=== PATIENT | female | born 1955 | race Caucasian/White ===

== ENCOUNTER 2016-11-04 10:29 | Emergency (ER) | payer BC ==
[~2016-11-04] VITALS: Ht 154.9 cm; Wt 43.9 kg
[~2016-11-04 10:29] MED LIST: CYCL-375 PO; IBUP200C62 PO
[2016-11-04 10:30] VITALS: Ht 154.9 cm; Wt 43.9 kg
--- OUTSIDE RECORDS SUMMARY | 2016-11-04 10:33 | XMS REPORT | Referral Summary ---
Author Author [facility], [facility] Organization [facility] Address Unknown Phone Unavailable Care Team Providers Care Nozzle Tender Name Role Phone Jenn Paige Primary Care Physician [phone] Encounter Date(s): 07/28/16 - 07/28/16 [facility], [address] [place] [id number] Discharge Diagnosis: Left shoulder pain Discharge Diagnosis: Breast cancer Discharge Disposition: 01-Home or Self Care Attending Physician: Kd Paige MD Admitting Physician: Kd Paige MD Vital Signs Most recent to 1 oldest [Reference Range]: Blood Pressure 114/68 mmHg [90-140/60-90 mmHg] (07/28/16 2:59 PM) Problem List Condition Effective Dates Status Health Status Informant Allergic rhinitis Active due to allergen(Confirmed) Breast 2001 Active cancer(Confirmed) Allergies, Adverse Reactions, Alerts Substance Reaction Severity Status sulfanilamide topical Active Medications cyclobenzaprine 10 mg oral tablet 10 mg 1 tabs, Oral, TID, as needed for spasm, # 60 tabs, 1 Refill(s), Pharmacy: [facility], 1 tabs Oral TID,PRN:as needed for spasm Start Date: 04/26/16 Status: Ordered ibuprofen 200 mg oral tablet 1 tabs, Oral, Daily, as needed for pain, 0 Refill(s) Start Date: 02/11/14 Status: Ordered magnesium oxide Oral, Daily, 0 Refill(s) Start Date: 07/28/16 Status: Ordered multivitamin Daily, 0 Refill(s) Start Date: 04/26/16 Status: Ordered Skelaxin 800 mg oral tablet 800 mg 1 tabs, Oral, TID, X 21 days, # 63 tabs, 1 Refill(s), Pharmacy: [facility], 1 tabs Oral TID,x21 days Start Date: 07/28/16 Stop Date: 09/08/16 Status: Ordered Results No data available for this section Immunizations No data available for this section Procedures Procedure Date Related Diagnosis Body Site Colonoscopic polypectomy1 06/03/14 Breast lumpectomy2 2000 Repair of inguinal hernia 1966 Rotator cuff repair3 Tubal ligation 1Single adenomatous polyp, father positive colon cancer, repeat in 5 years 2Left breast, followed by radiation 3Right, arthroscopically Social History Social History Type Response Smoking Status Current every day smoker; Type: Cigarettes; Tobacco use per day: 1 Pack Assessment and Plan Extracted from: Title: Ambulatory Patient Education Author: Kd Paige MD Date: 07/28 Family Medicine Joint Pain Joint pain, which is also called arthralgia, can be caused by many things. Joint pain often goes away when you follow your health care provider's instructions for relieving pain at home. However, joint pain can also be caused by conditions that require further treatment. Common causes of joint pain include: Bruising in the area of the joint. Overuse of the joint. Wear and tear on the joints that occur with aging (osteoarthritis). Various other forms of arthritis. A buildup of a crystal form of uric acid in the joint (gout). Infections of the joint (septic arthritis) or of the bone (osteomyelitis) . Your health care provider may recommend medicine to help with the pain. If your joint pain continues, additional tests may be needed to diagnose your condition. HOME CARE INSTRUCTIONS Watch your condition for any changes. Follow these instructions as directed to lessen the pain that you are feeling. Take medicines only as directed by your health care provider. Rest the affected area for as long as your health care provider says that you should. If directed to do so, raise the painful joint above the level of your heart while you are sitting or lying down. Do not do things that cause or worsen pain. If directed, apply ice to the painful area: Put ice in a plastic bag. Place a towel between your skin and the bag. Leave the ice on for 20 minutes, 23 times per day. Wear an elastic bandage, splint, or sling as directed by your health care provider. Loosen the elastic bandage or splint if your fingers or toes become numb and tingle, or if they turn cold and blue. Begin exercising or stretching the affected area as directed by your health care provider. Ask your health care provider what types of exercise are safe for you. Keep all follow-up visits as directed by your health care provider. This is important. SEEK MEDICAL CARE IF: Your pain increases, and medicine does not help. Your joint pain does not improve within 3 days. You have increased bruising or swelling. You have a fever. You lose 10 lb (4.5 kg) or more without trying. SEEK IMMEDIATE MEDICAL CARE IF: You are not able to move the joint. Your fingers or toes become numb or they turn cold and blue. This information is not intended to replace advice given to you by your health care provider. Make sure you discuss any questions you have with your health care provider. Document Released: 07/11/2006 Document Revised: 08/01/2015 Document Reviewed: [employer] Interactive Patient Education 2016 [employer] Procedures Heat Therapy Heat therapy can help ease sore, stiff, injured, and tight muscles and joints. Heat relaxes your muscles, which may help ease your pain. Heat therapy should only be used on old, pre-existing, or long-lasting (chronic) injuries. Do not use heat therapy unless told by your doctor. HOW TO USE HEAT THERAPY There are several different kinds of heat therapy, including: Moist heat pack. Warm water bath. Hot water bottle. Electric heating pad. Heated gel pack. Heated wrap. Electric heating pad. GENERAL HEAT THERAPY RECOMMENDATIONS Do not sleep while using heat therapy. Only use heat therapy while you are awake. Your skin may turn pink while using heat therapy. Do not use heat therapy if your skin turns red. Do not use heat therapy if you have new pain. High heat or long exposure to heat can cause vela. Be careful when using heat therapy to avoid burning your skin. Do not use heat therapy on areas of your skin that are already irritated , such as with a rash or sunburn. GET HELP IF: You have blisters, redness, swelling (puffiness), or numbness. You have new pain. Your pain is worse. MAKE SURE YOU: Understand these instructions. Will watch your condition. Will get help right away if you are not doing well or get worse. This information is not intended to replace advice given to you by your health care provider. Make sure you discuss any questions you have with your health care provider. Document Released: 10/02/2012 Document Revised: 08/01/2015 Document Reviewed: [employer] Interactive Patient Education 2016 [employer] No follow up information was provided. Extracted from: Title: Office Visit Note Author: Kd Paige MD Date: 07/28/16 Assessment/Plan 1.Breast cancer Stable. Ordered: Office Visit Level 3 Est 74794 2.Left shoulder pain Will try her on Skelaxin since it doesn't make one sleepy. She will take it tid. Continue with the Advil 600mg tid. If not improving will get a consult from Dr. Banuelos. Ordered: Office Visit Level 3 Est 98153
--- OUTSIDE RECORDS SUMMARY | 2016-11-04 10:33 | XMS REPORT | Referral Summary ---
Author Author [facility], [facility] Organization [facility] Address Unknown Phone Unavailable Care Team Providers Care Manager Property Name Role Phone Jenn Paige Primary Care Physician [phone] Encounter VC Date(s): 04/26/16 - 04/26/16 [facility], [address] [place] [address] Discharge Disposition: 01-Home or Self Care Attending Physician: Kd Paige MD Admitting Physician: Kd Paige MD Vital Signs Most recent to 1 oldest [Reference Range]: Blood Pressure 106/64 mmHg [90-140/60-90 mmHg] (04/26/16 3:52 PM) Problem List Condition Effective Dates Status Health Status Informant Allergic rhinitis Active due to allergen(Confirmed) Breast 2001 Active cancer(Confirmed) Allergies, Adverse Reactions, Alerts Substance Reaction Severity Status sulfanilamide topical Active Medications cyclobenzaprine 10 mg oral tablet 10 mg 1 tabs, Oral, TID, as needed for spasm, # 60 tabs, 1 Refill(s), Pharmacy: [facility], 1 tabs Oral TID,PRN:as needed for spasm Start Date: 04/26/16 Status: Ordered ibuprofen 200 mg oral tablet 1 tabs, Oral, Daily, as needed for pain, 0 Refill(s) Start Date: 02/11/14 Status: Ordered melatonin 3 mg oral tablet 3 mg 1 tabs, Oral, Bedtime (once a day), as needed for insomnia, # 60 tabs, 0 Refill(s) Start Date: 04/26/16 Status: Ordered Mobic 7.5 mg oral tablet 7.5 mg 1 tabs, Oral, BID, # 60 tabs, 2 Refill(s), Pharmacy: [facility], 1 tabs Oral BID Start Date: 04/26/16 Status: Ordered multivitamin Daily, 0 Refill(s) Start Date: 04/26/16 Status: Ordered Results No data available for [...] Patient Education Author: Kd Paige MD Date: 04/26/16 Cardiovascular Chest Wall Pain Chest wall pain is pain in or around the bones and muscles of your chest. It may take up to 6 weeks to get better. It may take longer if you must stay physically active in your work and activities. CAUSES Chest wall pain may happen on its own. However, it may be caused by: A viral illness like the flu. Injury. Coughing. Exercise. Arthritis. Fibromyalgia. Shingles. HOME CARE INSTRUCTIONS Avoid overtiring physical activity. Try not to strain or perform activities that cause pain. This includes any activities using your chest or your abdominal and side muscles, especially if heavy weights are used. Put ice on the sore area. Put ice in a plastic bag. Place a towel between your skin and the bag. Leave the ice on for 15-20 minutes per hour while awake for the first 2 days. Only take [id number] or prescription medicines for pain, discomfort , or fever as directed by your caregiver. SEEK IMMEDIATE MEDICAL CARE IF: Your pain increases, or you are very uncomfortable. You have a fever. Your chest pain becomes worse. You have new, unexplained symptoms. You have nausea or vomiting. You feel sweaty or lightheaded. You have a cough with phlegm (sputum), or you cough up blood. MAKE SURE YOU: Understand these instructions. Will watch your condition. Will get help right away if you are not doing well or get worse. This information is not intended to replace advice given to you by your health care provider. Make sure you discuss any questions you have with your health care provider. Document Released: 07/11/2006 Document Revised: 10/02/2012 Document Reviewed: ExitCare Patient Information 2016 [employer]. No follow up information was provided. Extracted from: Title: Office Visit Note Author: Kd Paige MD Date: 04/26/16 Assessment/Plan Chest wall pain Costochondritis Rx for Mobic. Ordered: Office Visit Level 3 Est 57966 XR Chest 2 Views
--- OUTSIDE RECORDS SUMMARY | 2016-11-04 10:33 | XMS REPORT | Referral Summary ---
Author Author [facility], [facility] Organization [facility] Address Unknown Phone Unavailable Care Team Providers Care Chairman And Ceo Name Role Phone Jenn Paige Primary Care Physician [phone] Encounter VC Date(s): 04/14/15 - 04/14/15 [facility], [address] [place] [address] Discharge Disposition: 01-Home or Self Care Attending Physician: Kd Paige MD Admitting Physician: Kd Paige MD Vital Signs Most recent to 1 oldest [Reference Range]: Blood Pressure 122/70 mmHg [90-140/60-90 mmHg] (04/14/15 3:58 PM) Problem List Condition Effective Dates Status Health Status Informant Allergic rhinitis Active due to allergen(Confirmed) Breast 2000 Active cancer(Confirmed) Allergies, Adverse Reactions, Alerts Substance Reaction Severity Status sulfanilamide topical Active Medications cyclobenzaprine 10 mg oral tablet 10 mg 1 tabs, Oral, TID, as needed for spasm, # 60 tabs, 1 Refill(s), Pharmacy: [facility], 1 tabs Oral TID,PRN:as needed for spasm Start Date: 04/14/15 Status: Ordered ibuprofen 200 mg oral tablet 1 tabs, Oral, Daily, as needed for pain, 0 Refill(s) Start Date: 02/11/14 Status: Ordered Results No data available for [...] Smoking Status Current every day smoker; Type: Cigarettes Assessment and Plan Extracted from: Title: Ambulatory Patient Education Author: Kd Paige MD Date: Allergy Allergic Rhinitis Allergic rhinitis is when the mucous membranes in the nose respond to allergens. Allergens are particles in the air that cause your body to have an allergic reaction. This causes you to release allergic antibodies. Through a chain of events, these eventually cause you to release histamine into the blood stream. Although meant to protect the body, it is this release of histamine that causes your discomfort, such as frequent sneezing, congestion, and an itchy , runny nose. CAUSES Seasonal allergic rhinitis (hay fever) is caused by pollen allergens that may come from grasses, trees, and weeds. Year-round allergic rhinitis (perennial allergic rhinitis) is caused by allergens such as house dust mites, pet dander, and mold spores. SYMPTOMS Nasal stuffiness (congestion). Itchy, runny nose with sneezing and tearing of the eyes. DIAGNOSIS Your health care provider can help you determine the allergen or allergens that trigger your symptoms. If you and your health care provider are unable to determine the allergen, skin or blood testing may be used. TREATMENT Allergic rhinitis does not have a cure, but it can be controlled by: Medicines and allergy shots (immunotherapy). Avoiding the allergen. Hay fever may often be treated with antihistamines in pill or nasal spray forms. Antihistamines block the effects of histamine. There are over-the- counter medicines that may help with nasal congestion and swelling around the eyes. Check with your health care provider before taking or giving this medicine. If avoiding the allergen or the medicine prescribed do not work, there are many new medicines your health care provider can prescribe. Stronger medicine may be used if initial measures are ineffective. Desensitizing injections can be used if medicine and avoidance does not work. Desensitization is when a patient is given ongoing shots until the body becomes less sensitive to the allergen. Make sure you follow up with your health care provider if problems continue. HOME CARE INSTRUCTIONS It is not possible to completely avoid allergens, but you can reduce your symptoms by taking steps to limit your exposure to them. It helps to know exactly what you are allergic to so that you can avoid your specific triggers. SEEK MEDICAL CARE IF: You have a fever. You develop a cough that does not stop easily (persistent). You have shortness of breath. You start wheezing. Symptoms interfere with normal daily activities. Document Released: 04/05/2002 Document Revised: 07/16/2014 Document Reviewed: ExitCare Patient Information 2015 [employer]. This information is not intended to replace advice given to you by your health care provider. Make sure you discuss any questions you have with your health care provider. Family Medicine Hearing Loss A hearing loss is sometimes called deafness. Hearing loss may be partial or total. CAUSES Hearing loss may be caused by: Wax in the ear canal. Infection of the ear canal. Infection of the middle ear. Trauma to the ear or surrounding area. Fluid in the middle ear. A hole in the eardrum (perforated eardrum). Exposure to loud sounds or music. Problems with the hearing nerve. Certain medications. Hearing loss without wax, infection, or a history of injury may mean that the nerve is involved. Hearing loss with severe dizziness, nausea and vomiting or ringing in the ear may suggest a hearing nerve irritation or problems in the middle or inner ear. If hearing loss is untreated, there is a greater likelihood for residual or permanent hearing loss. DIAGNOSIS A hearing test (audiometry) assesses hearing loss. The audiometry test needs to be performed by a museum specialist (mobile battery technician). TREATMENT Treatment for recent onset of hearing loss may include: Ear wax removal. Medications that kill germs (antibiotics). Cortisone medications. Prompt follow up with the appropriate specialist. Return of hearing depends on the cause of your hearing loss, so proper medical follow-up is important. Some hearing loss may not be reversible, and a caregiver should discuss care and treatment options with you. SEEK MEDICAL CARE IF: You have a severe headache, dizziness, or changes in vision. You have new or increased weakness. You develop repeated vomiting or other serious medical problems. You have a fever. Document Released: 07/11/2006 Document Revised: 10/02/2012 Document Reviewed: ExitCare Patient Information 2015 [employer]. This information is not intended to replace advice given to you by your health care provider. Make sure you discuss any questions you have with your health care provider. No follow up information was provided. Extracted from: Title: Office Visit Note Author: Kd Paige MD Date: 04/14/15 Assessment/Plan Allergic rhinitis due to allergen Will try patient on Nasacort 2puffs to each nostril at bedtime. Ordered: Office Visit Level 3 Est 03049 Hearing loss Ordered: Office Visit Level 3 Est 13383 Orders: cyclobenzaprine, 10 mg 1 tabs, Oral, TID, as needed for spasm, # 60 tabs, 1 Refill(s), Pharmacy: [facility], 1 tabs Oral TID,PRN:as needed for spasm
--- OUTSIDE RECORDS SUMMARY | 2016-11-04 10:33 | XMS REPORT | Referral Summary ---
Author Author [facility], [facility] Organization [facility] Address Unknown Phone Unavailable Care Team Providers Care String Cutter Name Role Phone Jenn Paige Primary Care Physician [phone] Encounter Date(s): 06/28/16 - 06/28/16 [facility] [address] [place] [id number] Discharge Diagnosis: Left shoulder pain Discharge Disposition: 01-Home or Self Care Attending Physician: Katarzyna Law PA-C Admitting Physician: Katarzyna Law PA-C Vital Signs Most recent to 1 oldest [Reference Range]: Peripheral Pulse 68 bpm Rate [60-100 bpm] (06/28/16 3:58 PM) Respiratory Rate 16 br/min [14-20 br/min] (06/28/16 3:58 PM) Blood Pressure 118/72 mmHg [90-140/60-90 mmHg] (06/28/16 3:58 PM) Problem List Condition Effective Dates Status Health Status Informant Allergic rhinitis Active due to allergen(Confirmed) Breast 2001 Active cancer(Confirmed) Allergies, Adverse Reactions, Alerts Substance Reaction Severity Status sulfanilamide topical Active Medications cyclobenzaprine 10 mg oral tablet 10 mg 1 tabs, Oral, TID, as needed for spasm, # 60 tabs, 1 Refill(s), [facility]acy: [facility], 1 tabs Oral TID,PRN:as needed for spasm [...] # 60 tabs, 2 Refill(s), Pharmacy: [facility], 1 tabs Oral BID Start Date: 04/26/16 Status: Ordered multivitamin Daily, 0 Refill(s) Start Date: 04/26/16 Status: Ordered Physical Therapy Physical Therapy, See Instructions, Evaluate and Treat for L shoulder pain ( M25.512) Please fax notes to [phone], # 1 Each, 0 Refill(s) Start Date: 06/28/16 Status: Ordered Results No data available for this section Immunizations No data available for this section Procedures Procedure Date Related Diagnosis Body Site Colonoscopic polypectomy1 06/03/14 Breast lumpectomy2 2000 Repair of inguinal hernia 1965 Rotator cuff repair3 Tubal ligation 1Single adenomatous polyp, father positive colon cancer, repeat in 5 years 2Left breast, followed by radiation 3Right, arthroscopically Social History Social History Type Response Smoking Status Current every day smoker; Type: Cigarettes; Tobacco use per day: 1 Pack Assessment and Plan Extracted from: Title: Office Visit Note- L Author: Katarzyna Law PA-C Date: shoulder pain Assessment/Plan Left shoulder pain Would like to get a dedicated shoulder x-ray today. May continue with Ibuprofen for pain relief. Also can tryice/heat to the shoulder. I think she may have a rotator cuff strain/partial tear, and would benefit also from PT. She was given a script today, and would like to do PT in [place]. If PT is not helping with ROM or with pain, then may get an MRI. Pt is agreeable with plan. Ordered: Misc Medication, Physical Therapy, See Instructions, Evaluate and Treat for L shoulder pain (M25.512) Please fax notes to [phone], # 1 Each, 0 Refill(s) Office Visit Level 3 Est 79927 XR Shoulder Complete Left
--- OUTSIDE RECORDS SUMMARY | 2016-11-04 10:33 | XMS REPORT | Continuity of Care Document ---
Author Author [facility] Organization [facility] Address Unknown Phone Unavailable Support Name Relationship Address Phone YAHAIRA MANTILLA FACS, MD Caregiver [address] [place] [place] [address] [place] [address] [phone] ELISABET RICHARDSON MD Caregiver [address] [place] [place] [address] [place] [address] [phone] JJ CAMARENA Next Of Kin [address] [place] [address] Insurance Providers Payer Name Policy Number Subscriber Name Relationship [facility] [id number] Alka Camarena 16 Self Advance Directives Directive Response Recorded Date/Time Ordered Resuscitation Status Full Code 05/31/14 4:59pm Problems No known problems or medical conditions. Medications Medication Dose Route Sig Days/Qty Instructions Order Date Discontinued Date Status Cyclobenzaprine HCl 1 Tab PO THREE TIMES A DAY 05/31/14 Active Ibuprofen 1 Cap PO Q4H PRN 05/31/14 Active Social History Social History Problem Response Recorded Date/Time Smoking Status Current every day smoker 06/03/2014 10:45am Hx Alcohol Use No 06/03/2014 10:45am Has the pt used tobacco in the last 12 months Yes 06/03/2014 10:45am Hospital Discharge Instructions No hospital discharge instructions. Plan of Care No plan of care. Functional Status No functional status results. Allergies, Adverse Reactions, Alerts Allergen Type Severity Reaction Status Last Updated Sulfa (Sulfonamide Antibiotics) Allergy Unknown Active 05/31/14 Immunizations Name Given Type Hx Influenza Vaccination Yes Historical Hx Pneumococcal Vaccination No Historical Hx Influenza Vaccination Yes Historical Vital Signs Acute Vital Signs Vital Response Date/Time Temperature (Fahrenheit) 98.0 deg F (96.8 - 99.1) Temperature (Calculated Celsius) 36.56603 degrees C (36.0 - 37.3) Temperature Source Temporal Pulse Rate (adult) 76 bpm (60 - 100) Respiratory Rate 16 breaths/min (10 - 20) O2 Sat by Pulse Oximetry 98 % (90 - 100) Oxygen Delivery Method Room Air Blood Pressure 111/67 mm Hg Blood Pressure Source Automatic Cuff Height 5 ft 1 in Weight 96 lb Body Mass Index 18.0 kg/m^2 Results No known relevant diagnostic tests, laboratory data and/or discharge summary. Procedures Procedure Status Date Provider(s) Colonoscopy with polypectomy and biopsy completed 06/03/14 YAHAIRA MANTILLA MD, FACS, CWS
--- NOTE | 2016-11-04 10:40 | NUR ---
IVL IV LOCK STARTED ON FIRST ATTEMPT AND BLOOD DRAWN FOR LAB.
--- OUTSIDE RECORDS SUMMARY | 2016-11-04 10:48 | XMS REPORT | Continuity of Care Document ---
Author Author [facility] Organization [facility] Address Unknown Phone Unavailable Support Name Relationship Address Phone YAHAIRA MANTILLA FACS, MD Caregiver [address] [place] [address] [place] [address] [phone] ELISABET RICHARDSON MD Caregiver [address] [place] [address] [place] [address] [phone] JJ CAMARENA Next Of Kin [address] [place] [address] Insurance Providers Payer Name Policy Number Subscriber Name Relationship [facility] [id number] Alka Camarena 16 Self Advance Directives Directive [...] F (96.8 - 99.1) Temperature (Calculated Celsius) 36.33533 degrees C (36.0 - 37.3) Temperature Source [...]
[2016-11-04 10:50] LABS: BASOPHILS % (AUTO) 0.3 % (0-2); EOSINOPHILS # (AUTO) 0.2 T/MM3 (0-0.5); EOSINOPHILS % (AUTO) 1.8 % (0-4); HCT - HEMATOCRIT 40.5 % (36-46); HGB - HEMOGLOBIN 13.8 GM/DL (12-16); IMMATURE GRANULOCYTE # (AUTO) 0.02 T/MM3 (0.00-0.03); IMMATURE GRANULOCYTE % (AUTO) 0.2 % (0.0-0.5); LYMPHOCYTES # (AUTO) 3.7 T/MM3 (1-4.8); LYMPHOCYTES % (AUTO) 29.3 % (23-45); MEAN CORPUSCULAR HGB 32.5 UUG (26-34); MEAN CORPUSCULAR HGB CONC(MCHC 34.1 GM/DL (31-37); MEAN CORPUSCULAR VOLUME 95.3 UM3 (80-100); MEAN PLATELET VOLUME 8.9 UM3 (9.4-12.4); MONOCYTES # (AUTO) 0.7 T/MM3 (0-0.8); MONOCYTES % (AUTO) 5.5 % (0-9.0); NEUTROPHILS #(AUTO)-ABSOLUTE 7.9 T/MM3 (1.8-7.7); NEUTROPHILS % (AUTO) 62.9 % (33-66); RED BLOOD COUNT 4.25 M/MM3 (4.00-5.20); WBC - WHITE BLOOD COUNT 12.5 T/MM3 (4.5-11.0)
[2016-11-04] MEDS ORDERED: SIMPLY SLEEP PO (10:58)
[2016-11-04] MEDS ORDERED: MAGN400C PO (10:58)
[2016-11-04 11:00] LABS: ALBUMIN 4.3 G/DL (3.5-5.0); ALBUMIN/GLOBULIN RATIO 1.4 RATIO (1.1-2.2); ALKALINE PHOSPHATASE 83 U/L (38-126); ALT (SGPT) 29 U/L (9-52); ANION GAP 15 MEQ/L (5-15); AST (SGOT) 20 U/L (14-36); BUN/CREATININE RATIO 22 RATIO (6-26); CALCIUM 9.7 MG/DL (8.4-10.2); CHLORIDE 105 MEQ/L (98-107); CO2 - CARBON DIOXIDE 20 MEQ/L (22-30); CREATININE 0.6 MG/DL (0.7-1.2); GLOMERULAR FILTRATION RATE 101; GLUCOSE 148 MG/DL (65-110); POTASSIUM 4.4 MEQ/L (3.6-5); SODIUM 140 MEQ/L (134-144); TOTAL PROTEIN 7.4 G/DL (6.3-8.2)
--- NOTE | 2016-11-04 11:00 | NUR ---
STATUS PT. CONTINUES TO DENY CHEST PAIN. MONITOR NSR AND NO NEEDS AT THIS TIME.
--- NOTE | 2016-11-04 11:12 | DI ---
Indication: ITS.REASON: Chest pain starting last night with shortness of breath PROCEDURE: CHEST 1 VIEW: Encounter: Initial Comparison: None FINDINGS: The lungs are clear. There is no abnormal airspace opacity, pleural effusion or pneumothorax identified. Bilateral nipple shadows noted incidentally. The heart size, pulmonary vasculature and mediastinum are within normal limits. No significant skeletal abnormality is seen. IMPRESSION: No acute cardiopulmonary abnormality. .
--- NOTE | 2016-11-04 12:02 | ERPDOC ---
Departure Disposition Decision Date: Nov 04, 2016 Disposition Decision Time: 12:01 Disposition: 01 DISCHARGED HOME, SELF-CARE Impression Impression Impression: Primary Impression: Atypical chest pain Severity: Mild Condition: Improved Seen By: Physician only Referrals: ELISABET RICHARDSON MD (Family) FELIPA NAGEL MD 2 Days Patient Instructions: Noncardiac Chest Pain (ED) Problems/Meds/Labs Reviewed?: Yes Medications reviewed and manag: Yes Follow up care ordered?: Yes Mental Status: Alert, Oriented HPI - General Medical General Chief Complaint: Chest Pain Stated Complaint: CP Time Seen by Provider: 10:38 Source: patient Exam Limitations: no limitations HPI - General Medical Initial Comments 61-year-old female presents to the emergency department with a chief complaint of chest discomfort. Pain was located midsternally. Pain was brief lasting less than 5 minutes. Pain was dull. Patient notes that she had multiple episodes of belching with the discomfort. Patient has no history of coronary artery disease. Pain was over 12 hours ago when present last. She has been a symptomatic for the past 12 hours. She notes that she felt much better after belching. She denies any other complaints or associated symptoms. She was at home laying down to sleep when the symptoms occurred. No familial or personal history of coronary artery disease. Occurred At: home Onset: other (Resolved. ) Allergies: Coded Allergies: Sulfa (Sulfonamide Antibiotics) (Unverified Allergy, Unknown, 05/31/14) Past History Past Medical History Metabolic: cancer Surgical History Denies Surgeries Family History Family History: Negative Vaccines Hx Influenza Vaccination: Yes Hx Pneumococcal Vaccination: No Social History Smoking Status: Current every day smoker Substance Use Type: does not use Alcohol Intake: none Review of Systems Constitutional Constitutional: DENIES: chills, fever Eyes General: DENIES: erythema, exudate Lids/Accessories: DENIES: erythema, swelling Vision: DENIES: acuity, blurring ENMT Ears: DENIES: drainage, erythema Hearing: DENIES: hearing loss Balance: DENIES: ataxia, falling to one side Sinuses: DENIES: congestion, pain Nose: DENIES: nosebleeds, pain Mouth/Throat: DENIES: painful swallowing, sore throat Teeth: DENIES: pain Jaw: DENIES: pain Cardiovascular Cardiac: chest pain (resolved), DENIES: dyspnea on exertion Rhythm/Rate: DENIES: irregular beat, palpitations Vascular: DENIES: pedal edema, unilateral swelling Pulmonary Respiratory: DENIES: cough, dyspnea, pleuritic chest pain, sputum GI Upper Abdomen: DENIES: nausea, pain, vomiting Lower Abdomen: DENIES: diarrhea, pain General: DENIES: dysuria, frequency Musculoskeletal General: DENIES: joint pain, tenderness Integumentary Skin: DENIES: itching, rash Neurological General: DENIES: headache, numbness, weakness Psychiatric Psychiatric: DENIES: emotional instability, suicidal ideation/attempt Endocrine Endocrine: DENIES: polydipsia, polyphagia Hematologic/Lymphatic Hematologic/Lymphatic: DENIES: frequent nosebleeds, lymphadenopathy Allergic/Immunological Allergic/Immunoligical: DENIES: allergic reactions, hives Physical Exam General General Nourishment: well nourished, well developed, appears stated age, no acute distress, adult General Body Habitus: well groomed Vitals and Pain First Documented Vital Signs Date Time Temp Pulse Resp B/P Pulse Ox O2 Delivery O2 Flow Rate FiO2 11/04/16 10:30 98.2 71 20 154/75 99 Room Air Weight: Kilograms: 43.900 Height (feet): 5 Height (inches): 1.00 Triage Pain Scale: RN VS reviewed by Provider: Yes Normal Exams: Head: Normocephalic w/o trauma Eyes: Pupils are PERRLA w/ EOMI, No scleral icterus, irritation, or foreign bodies noted ENMT: No facial trauma, nasal exudates, pharyngeal erythema, or exudates are noted Dental: No fractured, loose, or missing teeth noted Neck: Full range of motion, without adenopathy, JVD, bruits or thyromegaly Chest/Resp: Clear all leonard, with good airflow, and symmetry bilaterally CV: Regular rate and rhythm, without murmur or gallop, Pulses 2+ all extremities, capillary refill, <2 seconds all ext., no pedal edema noted Abdomen: Bowel sounds positive, soft, non-tender, non-distended, no hepatosplenomegaly, masses or bruits noted Lymphatic: No lymphadenopathy, or lymphedema noted Musculoskeletal: No tenderness, or deformity noted, good range of motion, all extremities Integumentary: No rashes, hives, or bruising noted, hair and nails, without abnormality Neurologic: Patient is alert, and oriented, cranial nerves, motor/sensory/ cerebellar, exams w/o gross deficits, to observation Psychiatric: Patient exhibits, appropriate attention, emotion and affect Differential Diagnoses Considering: Acute LA, Medication Effect, Metabolic, Other (GERD) Progress Results/Orders Orders Procedure Category Date Status Time Cbc W/Auto LAB 11/04/16 Complete Diff-Reflex Manual Cmp - Comprehensive LAB 11/04/16 Complete Metabolic Troponin I W LAB 11/04/16 Complete Hemolysis Index Chest 1 View RAD 11/04/16 Resulted 10:41 EKG EKG 11/04/16 Taken D-Dimer LAB 11/04/16 Complete 11:13 Lab Results Laboratory Tests Test 11/04/16 10:44 11/04/16 11:00 White Blood Count 12.5T/MM3 Red Blood Count 4.25M/MM3 Hemoglobin 13.8GM/DL Hematocrit 40.5% Mean Corpuscular Volume 95.3UM3 Mean Corpuscular Hemoglobin 32.5UUG Mean Corpuscular Hemoglobin Concent 34.1GM/DL RDW Standard Deviation 43.7FL Platelet Count 395T/MM3 Mean Platelet Volume 8.9UM3 Immature Granulocyte % (Auto) 0.2% Neutrophils (%) (Auto) 62.9% Lymphocytes (%) (Auto) 29.3% Monocytes (%) (Auto) 5.5% Eosinophils (%) (Auto) 1.8% Basophils (%) (Auto) 0.3% Absolute Immature Granulocyte (auto 0.02T/MM3 Absolute Neutrophils (auto) 7.9T/MM3 Absolute Lymphocytes (auto) 3.7T/MM3 Absolute Monocytes (auto) 0.7T/MM3 Absolute Eosinophils (auto) 0.2T/MM3 Absolute Basophils (auto) 0.0T/MM3 Turbidity < 20 Sodium Level 140MEQ/L Potassium Level 4.4MEQ/L Chloride Level 105MEQ/L Carbon Dioxide Level 20MEQ/L Anion Gap 15MEQ/L Blood Urea Nitrogen 13.0MG/DL Creatinine 0.6MG/DL Glomerular Filtration Rate Calc 101 BUN/Creatinine Ratio 22RATIO Glucose Level 148MG/DL Calculated Osmolality 272MOSM/KG Calcium Level 9.7MG/DL Total Bilirubin 0.50MG/DL Icterus Index < 2 Aspartate Amino Transf (AST/SGOT) 20U/L Alanine Aminotransferase (ALT/SGPT) 29U/L Alkaline Phosphatase 83U/L Troponin I < 0.012ng/ml Total Protein 7.4G/DL Albumin 4.3G/DL Globulin 3.1G/DL Albumin/Globulin Ratio 1.4RATIO Chemistry Specimen Hemolysis < 15 D-Dimer < 150NG/ML Progress Progress Labs/imaging discussed in detail with the patient and questions are answered. Patient has a normal EKG, negative troponin, negative d-dimer, and unremarkable chest x-ray. Patient has been asymptomatic for over 12 hours. Patient is discussed with Dr. Nagel of cardiology who is in agreement with the current plan of management. Patient is offered admission to the hospital but she declines. Patient is to follow-up with Dr. Covington on Tuesday. Patient is to return to the emergency Department if her condition worsens or changes in any manner. Patient is in agreement with the current plan of management. She is to follow up as instructed. Patient remained asymptomatic during her ED stay. EKG EKG : Rate: 60-100 Rhythm: sinus [place]: normal QRS: normal Intervals: normal ST/T: normal Interpreted by: signing physician Xray Xray : Xray: CXR Portable Interpretation: Normal, Reviewed Written Report NANCY ARMIJO DO Nov 04, 2016 12:02
--- NOTE | 2016-11-04 12:10 | NUR ---
DISMISSAL NOTE DISMISSAL INSTRUCTIONS GIVEN TO PT. AND NO FURTHER QUESTIONS. PT. LEFT ED AMBULATORY BY SELF.
--- NOTE | 2016-11-04 13:15 | NUR ---
Dina garcia in [facility] - 11/04/16 at 1348 by YOKO IVL IV LOCK STARTED ON SECOND ATTEMPT AND BLOOD DRAWN FOR LAB.
[2016-11-04 13:53] VITALS: BP 109/68; PULSE 78; RESP 42; TEMP 98.2; O2SAT 96
== END 2016-11-04 12:10 | disposition home or self-care (01) ==
LOC: ED 10:29
DX: R07.89 Other chest pain (principal)
CPT/HCPCS: 80053; 84484; 85025; 85379; 93005